=== PATIENT | female | born 1950 | race Hispanic/Latino ===

== ENCOUNTER 2018-02-16 15:03 | Outpatient (CLI) | payer MEDICARE | END 2018-02-16 15:04 | disposition home or self-care (01) | LOC: BICMAMMO 15:03 | PROVIDERS: ATTEND Family Medicine | DX: Z12.31 Encounter for screening mammogram for malignant neoplasm of breast (principal); Z13.820 Encounter for screening for osteoporosis; Z78.0 Asymptomatic menopausal state; M81.0 Age-related osteoporosis without current pathological fracture; R92.1 Mammographic calcification found on diagnostic imaging of breast | CPT/HCPCS: 77063; 77067; 77080 ==

== ENCOUNTER 2018-07-25 07:33 | Inpatient (IN) | payer MEDICARE ==
[2018-07-25] MEDS ORDERED: Ondansetron PF 4 MG/2 ML Vial ONE ×2 (07:36→09:05)
[2018-07-25] MEDS ORDERED: hydrALAZINE 20 MG/ML VIAL ONE (07:40)
[2018-07-25] MEDS ORDERED: niCARdipine 20MG In NaCl 20 MG/200 ML BAG ONE (07:40)
[2018-07-25 07:53] LABS: #Basophils 0.1 thou/uL (0.0-0.2); #Eosinphils 0.3 thou/uL (0.0-0.7); #Lymphocytes 2.9 thou/uL (1.20-3.40); #Neutrophils 6.7 thou/uL (1.40-6.50); %Basophils 0.8 % (0.0-1.0); %Eosinophils 2.4 % (0.0-10.0); %Lymphocytes 26.6 % (21.0-51.0); %Monocytes 9.1 % (0.0-10.0); %Neutrophils 61.1 % (42.0-75.0); Hemoglobin 13.4 g/dL (12.0-16.0); Mean Corpuscular HGB CONC 32.9 g/dL (32.0-36.0); Mean Corpuscular Hemoglobin 29.5 pg (27.0-31.0); Mean Corpuscular Volume 89.5 fL (78.0-98.0); Mean Platelet Volume 7.7 fL (7.4-10.4); Platelet Count 238 thou/uL (130-400); RBC Distribution Width 12.1 % (11.5-14.5); Red Blood Cell (RBC) Count 4.56 mill/uL (4.20-5.40); White Blood Cell (WBC) Count 10.9 thou/uL (4.8-10.8)
[2018-07-25 08:03] LABS: INR-International Normal Ratio 1.1; PTT 30.7 SEC (22.9-36.1); Prothrombin Time 14.2 SEC (12.0-14.7)
[2018-07-25 08:11] LABS: ALT (SGPT) 30 U/L (8-55); AST (SGOT) 27 U/L (5-34); Albumin 3.7 g/dL (3.4-4.8); Alkaline Phosphatase 50 U/L (40-150); Anion Gap 12 mmol/L (10-20); BUN (Urea Nitrogen) 8 mg/dL (9.8-20.1); Bilirubin, Total 0.4 mg/dL (0.2-1.2); Calc. Creatinine Clearance 0 mL/min (70-130); Calcium 9.2 mg/dL (7.8-10.44); Carbon Dioxide 28 mmol/L (23-31); Chloride 104 mmol/L (98-107); Estimated GFR-MDRD Greater than 90; Globulin 3.1 g/dL (2.4-3.5); Glucose 135 mg/dL (80-115); Potassium 3.6 mmol/L (3.5-5.1); Protein, Total 6.8 g/dL (6.0-8.3); Sodium 140 mmol/L (136-145)
--- NOTE | 2018-07-25 08:12 | CT ---
HEAD CT WITHOUT CONTRAST: HISTORY: Left-sided weakness. Placid paralysis. Left-sided facial droop. COMPARISON: None. TECHNIQUE: Noncontrast head CT is performed from the skull base to the skull vertex. FINDINGS: FINDINGS: There is an acute intraparenchymal hemorrhage centered in the right deep hernandez matter structures and r ight thalamus. This hemorrhage measures 2.0 x 1.7 cm. There is a small amount of associated periphe ral edema. There is decompression of hemorrhage into the right ventricular system. No evidence of h ydrocephalus. No midline shift. Basilar cisterns are patent. Cortical hernandez-white matter differentiation is preserved. Adequate aeration of the mastoid air cells. Right sphenoid sinus disease. Calvarium is intact. IMPRESSION: 1. Intraparenchymal hemorrhage. 2. Results of the study discussed with Dr. Epperson 07/25/2018 at 7:49 a.m. CODE PIPER POS: [facility]
[2018-07-25 08:16] LABS: CKMB 1.8 ng/mL (0-6.6); Troponin I Less than 0.010 ng/mL (< 0.028)
[2018-07-25] MEDS ORDERED: Ondansetron PF 4 MG/2 ML Vial IVP PRN (08:23)
[2018-07-25] MEDS ORDERED: Acetaminophen 1,000 MG in Premix Bag 1 BAG IVPB PRN (08:29)
[2018-07-25] MEDS ORDERED: Morphine 2 MG/ML SYRINGE SLOW IVP PRN (08:30)
[2018-07-25 09:00] LABS: Bilirubin Negative (Negative); Blood, Urine Negative (Negative); Clarity TURBID (Clear); Glucose, Urine (Dipstick) Negative (Negative); Leukocyte Negative (Negative); Nitrite Negative (Negative); Protein, Urine (Dipstick) Negative (Neg-Trace); Specific Gravity, Urine 1.011 (1.002-1.036); Urobilinogen 0.2 mg/dL (0.2-1.0)
[2018-07-25] MEDS ORDERED: Famotidine/PF 20 mg/2ml Vial ONE (13:04)
[2018-07-25 13:45] LABS: Hemoglobin A1c 6.1 % (4.0-6.0)
--- NOTE | 2018-07-25 15:55 | PDOC.EVN ---
Attending Addendum - Attending Addendum Date/Time: 07/25/18 154 I personally evaluated the patient and discussed the management with Dr. Thompson. I agree with the History, Examination, Assessment and Plan documented in his consultation note with any addition or exceptions noted below. Patient with overall unknown medical history here after sudden change in neurological function. She was ambulating this morning when she fell, and immediately had L sided weakess, facial droop, and slurred speech. On arrival to the ER, BP greatly elevated to >[address] brain obtained at that time showed acute ICH without significant midline shift. She was started on IV Cardene and admitted to NSGY team for further treatment of this hemorrhagic stroke and intraparenchymal hemorrhage. Admitted to CCU, overall mgmt per primary team NSGY and Pulm. WIll continue to assist with BP control. Will initiate and titrate oral anti-HTN drugs when medically cleared by NSGY. Consult stroke team and screen for risk factors and treat as appropriate. Will follow along with the primary team and provide input wherever necessary.
[2018-07-25] MEDS: Sodium Chloride 0.9% 1,000 ML IV SCH ×2 (19:35)
[2018-07-25] MEDS: Famotidine/PF 20 mg/2ml Vial SLOW IVP SCH ×2 (19:36→20:31)
--- NOTE | 2018-07-25 21:22 | CON ---
DATE OF CONSULTATION: 07/25/2018 CHIEF COMPLAINT: Left-sided hemiparalysis, left-sided facial droop, and recent hemorrhagic stroke. HISTORY OF PRESENT ILLNESS AND BRIEF HOSPITAL COURSE: This is a 68-year-old female with no past medical history, came to ED after was found down by a neighbor around 0710 hours this morning, was not acting right. She had left-sided facial droop and left-sided weakness. When EMS came and found her blood pressures were in the 210s, brought to the ER, it was around 190. When I went to evaluate the patient, the patient was very sleepy, was not easily arousable even to sternal rub. Speaking with family, she does have a history of excessive snoring at night, feeling very tired throughout the day, reporting falling asleep quite easily during the day. The patient reports being very tired per the family and is resting at this time. She is still experiencing symptoms of left-sided numbness and not being able to move her left arm or left leg. PAST MEDICAL HISTORY: None. PAST SURGICAL HISTORY: Had 1 prior . ALLERGIES: NO KNOWN DRUG ALLERGIES. FAMILY HISTORY: She had a brother who had a stroke. SOCIAL HISTORY: She is currently smoking 3 cigarettes a day, had cut back from half a pack per day smoking 3-1/2 years ago, had smoked half a pack per day for over 30 years. Alcohol; drinks occasionally more socially drinks 5 beers sometimes at a time. No illicit drug use. REVIEW OF SYSTEMS: Unable to obtain review of systems as the patient was very drowsy and unarousable at this time. We will try and reassess later. PHYSICAL EXAMINATION: CONSTITUTIONAL: The patient again is very sleepy, non-arousable even to sternal rub. HEENT: The patient's head exam is normal. Atraumatic and normocephalic. Eyes; pupils are equally round and reactive to light. No nystagmus. ENT; moist mucous membranes noted. NECK: Trachea is midline. No lymphadenopathy noted. CARDIOVASCULAR: Regular rate and rhythm. No gallops or murmurs. RESPIRATORY: Lungs are clear to auscultation bilaterally. No wheezes or crackles. ABDOMEN: Nontender. Bowel sounds normal. No distention. No masses at this time. NEUROLOGIC: Unable to fully assess full neuro exam. Again, this patient was very drowsy and sleepy at this time. She would open her eyes, but would follow right back to sleep. SKIN: No swelling noted. Skin is warm and dry. LABORATORY DATA: White blood cell count was 10.9, hemoglobin 13.4, hematocrit 40.8, and platelet count 238. PT 14.2, INR 1.1. Chemistries; sodium 140, potassium 3.6, chloride 104, carbon dioxide 28, anion gap 12, BUN 8, creatinine 0.57, glucose 135, calcium 9.2. Total bilirubin 0.4, AST 27, ALT 30, alkaline phosphatase 50, CK- MB 1.8, troponin I was less than 0.010. Albumin 3.7. Total protein 6.8. UA was insignificant. IMAGING: Brain CT showed intraparenchymal hemorrhage. There is an acute intraparenchymal hemorrhage centered in the right deep greene matter structures and right thalamus. Hemorrhage measures 2.0 to 1.7 cm at this time. ASSESSMENT: 1. Hemorrhagic stroke. 2. Suspect obstructive sleep apnea. 3. Elevated blood glucose. 4. Elevated blood pressures. 5. Morbid obesity. 6. Tobacco abuse. PLAN: 1. Hemorrhagic stroke- Neurosurgery is the primary team. They are managing hemorrhagic stroke at this time. We will follow their orders and recommendations. As far as their standpoint, there is nothing can be done for the hemorrhage at this time. We will continue to follow. 2. NARAYAN- We will order CPAP for the patient tonight as the patient is very sleepy and unarousable during visit, talking with family it seems that she has a history of sleep apnea that has never been assessed in the past. 3. Elevated Blood Glucose- The patient's blood sugar iselevated at 135, not sure it was backing enough, but we will check her hemoglobin A1c and assess for another. 4. Elevated blood pressure. Her blood pressure was elevated at the time the patient was arrived, unsure if this is due to hemorrhagic stroke. She was placed on Cardene drip per Neurosurgery's recommendations. Continue to follow their parameters. We will want to trend blood pressures once she is off the Cardene drip and treat appropriately. 5. Tobacco abuse. We will consult the patient on cessation of cigarette use when she is more alert and oriented. Job ID: [id number] [facility]
--- NOTE | 2018-07-25 22:26 | CON ---
DATE OF CONSULTATION: SUBJECTIVE: Radha Schrader is a 68-year-old morbidly obese female, who is in the ICU for a right-sided intracerebral hemorrhage, probably hypertensive. She was in the ER some time back for a dislocated shoulder on 04/14/2017. She takes no regular medication as per the daughter, only medicine is vitamins. PAST MEDICAL HISTORY: Unknown diabetes, hypertension. PAST SURGICAL HISTORY: Apparently none, some shoulder issues, multiple dislocations, which were addressed by Orthopedic Surgery. ALLERGIES: NONE. SOCIAL HISTORY: Otherwise unremarkable. Tobacco none. Alcohol minimal. She did smoke at one time, half pack a day, but quit smoking 10 years ago. No previous history of TB, pneumonia, or asthma. Previous surgeries, c section_. PHYSICAL EXAMINATION: GENERAL: Awake, alert, responsive. She has right-sided weakness, slurred speech. VITAL SIGNS: Saturations 95%, blood pressure 150/80, respirations 18, pulse 80. CHEST: Revealed no wheezing or crackles. CARDIAC: Normal S1 and S2. No gallop. ABDOMEN: Soft. EXTREMITIES: No edema. LABORATORY DATA: White count 10,000, H and H unremarkable. Lytes are normal. IMPRESSION: 1. Hypertensive right intracerebral hemorrhage. 2. Morbid obesity, probably sleep apnea. PLAN: Neurosurgery has seen the patient. Blood pressure medicine p.r.n. Otherwise, agree with PT, supportive care, and serial exam. This is a consultation note, 70 minutes, of which 50% on direct patient care. Job ID: [id number] [facility]TDD
[2018-07-26] MEDS: Sodium Chloride 0.9% 1,000 ML IV SCH ×2 (02:06→21:20)
[2018-07-26] MEDS: hydrALAZINE 20 MG/ML VIAL SLOW IVP PRN (04:12)
--- NOTE | 2018-07-26 07:21 | PDOC.FM ---
- Subjective Subjective: Pt alert and oriented this am. Speech still slurred at this time. Pt reports having hard time swallowing. Denies any chest pain or SOB at this time. Denies any acute events overnight. Pt denies any n/v/d/c. Pt unable to move left arm or left leg at this time. - Objective MAR Reviewed: Yes Vital Signs & Weight: Vital Signs (12 hours) Temp Pulse Resp BP Pulse Ox 07/26/18 04:12 81 172/83 H 07/26/18 03:00 99.0 F 07/25/18 23:00 98.2 F 07/25/18 21:00 81 15 100 07/25/18 20:00 98 Weight Weight 82.7 kg Most Recent Monitor Data Heart Rate from ECG 93 NIBP 147/102 NIBP BP-Mean 117 Respiration from ECG 24 SpO2 97 I&O: 07/25/18 07/26/18 07/27/18 06:59 06:59 06:59 Intake Total 781 Output Total 1300 Balance -519 Result Diagrams: 07/25/18 07:45 07/25/18 07:45 Radiology Reviewed by me: Yes (Brain CT today pending. ) Radiology: 07/25/[address] Brain [address]- R intraparenchymal hemorrhage in deep hernandez matter and by R. thalamus. <Satnam Thompson - Last Filed: 07/26/18 07:19> - Objective Vital Signs & Weight: Vital Signs (12 hours) Temp Pulse Resp BP Pulse Ox 07/26/18 08:00 99.3 F 07/26/18 07:51 88 23 H 98 07/26/18 04:12 81 172/83 H 07/26/18 03:00 99.0 F 07/25/18 23:00 98.2 F Weight Weight 82.7 kg Most Recent Monitor Data Heart Rate from ECG 80 NIBP 162/74 NIBP BP-Mean 103 Respiration from ECG 17 SpO2 97 I&O: 07/25/18 07/26/18 07/27/18 06:59 06:59 06:59 Intake Total 781 Output Total 1300 175 Balance -519 -175 Result Diagrams: 07/25/18 07:45 07/25/18 07:45 <Sarai Carpenter - Last Filed: 07/26/18 10:52> Phys Exam - Physical Examination Constitutional: NAD HEENT: PERRLA, moist MMs Neck: no nodes, no JVD, supple Respiratory: no wheezing, no rales, no rhonchi, clear to auscultation bilateral Cardiovascular: RRR, no significant murmur, no rub Gastrointestinal: soft, non-tender, no distention, positive bowel sounds Musculoskeletal: no edema, pulses present Pt still has slurred speech. A little easier to understand compared to Unable to move left arm/leg. Decreased sensation. Left facial droop present Lymphatic: no nodes Psychiatric: normal affect, A&O x 3 Skin: no rash, normal turgor, cap refill <2 seconds <Satnam Thompson - Last Filed: 07/26/18 07:19> Dx/Plan (1) Hemorrhagic stroke Code(s): I61.9 - NONTRAUMATIC INTRACEREBRAL HEMORRHAGE, UNSPECIFIED Status: Acute (2) Pre-diabetes Code(s): R73.03 - PREDIABETES Status: Acute (3) Tobacco abuse counseling Code(s): Z71.6 - TOBACCO ABUSE COUNSELING Status: Acute - Plan Plan: Hemorrhagic Stroke -Repeat Brain Ct pending -Neurosurgery team managing at this time. Non operative. -PT/OT/Rehab consulted- will follow recs -Speech consulted- having difficulties swallowing. Follow recs -statin started. Elevated BP -IV PRN labetolol and hydralazine ordered for SBP >180. Neurosurgery also managing BP per protocol. -Continue to monitor. Likely underlying dx of hypertension. Once pt swallowing improved will want to start oral medication Prediabetes -A1c 6.1. Closer to discharge will counseling center director pt and likely start on metformin. <Satnam Thompson - Last Filed: 07/26/18 07:19> Attending Addendum - Attending Addendum Date/Time: 07/26/18 1050 I personally evaluated the patient and discussed the management with Dr. Thompson. I agree with the History, Examination, Assessment and Plan documented above with any addition or exceptions noted below. The patient has failed swallow eval. Therapy will continue to re-evaluate. The patient has prn's for bp control. Will begin orals when safe to swallow. <Sarai Carpenter - Last Filed: 07/26/18 10:52>
[2018-07-26] MEDS: Famotidine/PF 20 mg/2ml Vial SLOW IVP SCH ×2 (08:52→21:19)
--- NOTE | 2018-07-26 08:54 | CT ---
PRELIMINARY REPORT/[facility]/EMERGENTY AFTER-HOURS PROCEDURE CT Head Without Contrast EXAM DATE/TIME: 07/26/2018 3:32 AM CLINICAL HISTORY: 68 years old, female; Condition or disease; Other: Hemorrhage; Patient HX: F/u intracerebral hemorrha [facility] stroke TECHNIQUE: Axial computed tomography images of the head/brain without contrast. COMPARISON: CT Brain WO Con 07/25/2018 7:42 AM FINDINGS: Brain: Scattered areas of hypoattenuation, likely chronic small vessel ischemic change, demyelination , or gliosis. Ventricles: 2.1 x 2.0 cm hemorrhage within the right basal ganglia and thalamus, with extension of he morrhage into the right lateral ventricle, not significantly changed from comparison study. Bones/joints: Normal. Sinuses: Minimal ethmoid and right maxillary sinus disease. Mastoid air cells: Normal as visualized. Soft tissues: Normal. Vasculature: Atherosclerotic vascular calcifications. IMPRESSION: 2.1 x 2.0 cm hemorrhage within the right basal ganglia and thalamus, with extension of hemorrhage int o the right lateral ventricle, not significantly changed from comparison study. Thank you for allowing us to participate in the care of your patient. Dictated and Authenticated by: Dinesh Sorenson MD 07/26/2018 3:55 AM Central Time ([place] & [place]) FINAL REPORT EMERGENCY AFTER HOURS CT BRAIN: Date: 07/26/18 FINDINGS/IMPRESSION: I agree with the above provided preliminary interpretation from [facility]. Redemonstration of acute parenchymal hemorrhage centered at the right thalamus with extension into th e right basal ganglia and burdick radiata. Expected evolution with developing surrounding vasogenic ed gemma. Degree of ventricular effacement and slight leftward midline shift persists. Continued follow-up is warranted. POS: [facility]
--- NOTE | 2018-07-26 11:08 | PRG ---
DATE OF SERVICE: 07/26/2018 SUBJECTIVE: This morning, she says she is having some difficulty breathing. OBJECTIVE: VITAL SIGNS: Blood pressure is elevated at 162/74, temperature is 99.3, pulse is 88, and respirations are 18. CHEST: Decreased breath sounds. No wheezing. CARDIAC: Normal S1 and S2. No gallops or murmurs. IMAGING STUDIES: CT brain shows stable right basilar thalamus infarct. IMPRESSION: 1. Morbid obesity. 2. Hypertension. PLAN: Norvasc was initiated by [facility]. PT will follow. Job ID: [id number]
--- NOTE | 2018-07-26 11:43 | RAD ---
CHEST ONE VIEW: History: Dyspnea. CVA. FINDINGS: No comparison. Cardiac silhouette is magnified by projection. Pulmonary vasculature is unremarkable. Mediastinum is midline with aortic calcification. No confluent airspace consolidation or evidence of pneumothorax. T hree metallic densities project over the right lower chest. satellite project site monitor leads overlie the chest. IMPRESSION: 1. Atherosclerosis. 2. No active cardiopulmonary abnormalities are otherwise demonstrated. POS: [place]
--- NOTE | 2018-07-26 13:09 | HP ---
HISTORY OF PRESENT ILLNESS: The patient is a 68-year-old obese female , who was otherwise reportedly healthy, who was found down by her this morning. He reports that they worked at the [employer] and this morning around 0700 hours, he heard a thud and found the patient lying on the ground near the front door. At that time, he noticed she had left-sided weakness and slurred speech, so EMS was contacted who brought the patient to [facility] for further evaluation. CT head was done on arrival, which showed a right-sided intracranial hemorrhage located around the right thalamus. There is intraventricular extension. The patient was also noted per EMS to have elevated systolic blood pressure greater than 200 on their initial arrival. Her PT and INR are normal as well as her platelet count. The patient was started on a Cardene drip shortly after arrival to the emergency department and her most recent blood pressure is 126/79. I examined patient in ER room 5 and she is A and O x3. She has dysarthria and obvious left-sided facial droop, left-sided dense hemiplegia, and left-sided neglect. PAST MEDICAL HISTORY: The patient and family reports she is otherwise healthy and denies any prior medical problems. PAST SURGICAL HISTORY: section. SOCIAL HISTORY: The patient smokes approximately one half pack per day. She drinks approximately 5 alcoholic drinks per day. She does not use any drugs. She lives at home with her family. She is . ALLERGIES: SHE HAS NO KNOWN DRUG ALLERGIES. CURRENT MEDICATIONS LIST: 1. Fish oil. 2. Zinc. REVIEW OF SYSTEMS: Unobtainable at this time secondary to current condition. PHYSICAL EXAMINATION: VITAL SIGNS: BP is 126/79, pulse is 99, respiratory rate is 20, temperature is 98.5, and the patient is 99% on room air. CONSTITUTIONAL: Slightly drowsy, but awakens easily to voice. She is oriented x3. HEENT: Head; she has obviously left-sided facial droop. No evidence of trauma. Eyes; PERRLA. ENT; mucosa is pink and moist. The patient has moderate dysarthria and some difficulty swallowing. NECK: Nontender to palpation. CARDIAC: Regular rate and rhythm. PULMONARY: Symmetric chest expansion. No evidence of dyspnea. NEUROLOGIC: She is slightly drowsy, but she awakens easily to voice. She is oriented x3. She has an obvious left facial droop, dysarthria, and a dense left hemiplegia with left-sided neglect. She has 5/5 strength on the right. ASSESSMENT AND PLAN: This is an unfortunate 68-year-old female, who was found to have acute intracranial hemorrhage in the right basal ganglia region following a hypertensive episode. Currently, her blood pressure is being controlled on a Cardene drip and we will continue this. The patient will be admitted to the ICU where she can be monitored closely with q. 1 neuro checks and strict blood pressure control. She will need a dysphagia screen and will be kept n.p.o. until that time. We will plan to repeat her a.m. head CT. I have also consulted critical care as well as hospitalist for assistance in medical management. Dr. Peres has been notified and is in agreement with this plan. Job ID: [id number] MTDD
[2018-07-26 13:12] LABS: Actual Bicarbonate (HCO3a) 28.1 mEq/L (22-28); Base Excess (BEa) 3.1 mEq/L (-2.0 to +3.0); CO2 Tension 44.6 mmHg (35.0-45.0); Calcium, Ionized 1.11 mmol/L (1.12-1.30); Carboxyhemoglobin (COHb) 1.5 gm% (0.0-3.0); Hemoglobin (Hb) 13.3 g/dL (12.0-16.0); O2 Tension (PaO2) 89.5 mmHg (> 80.0); Potassium - ABG Lab 3.58 mmol/L (3.70-5.30); pH, Arterial 7.42 (7.35-7.45)
[2018-07-26 13:14] LABS: Puncture Site RRA
--- NOTE | 2018-07-26 14:28 | CT ---
CT BRAIN WITHOUT CONTRAST: Comparison: 07-26-18 History: Change in mental status. Intracranial hemorrhage. Technique: Multiple contiguous axial images were obtained in a CT of the brain without contrast. FINDINGS: There is a stable areas of hemorrhage involving the right basal ganglia. This measures approximately 2.8 cm in greatest dimension. A small amount of surrounding edema is seen. A small amount of blood is seen in the right lateral ventricle, unchanged. No hydrocephalus is present. No significant midline shift or downward herniation is seen. The calvarium and overlying soft tissues are unremarkable. The visualized paranasal sinuses and masto id air cells are well aerated. IMPRESSION: Stable right basilar ganglia hemorrhage extending into the right lateral ventricle. POS: [facility]
--- NOTE | 2018-07-26 15:02 | PRG ---
DATE OF SERVICE: 07/26/2018 SUBJECTIVE: The patient is seen and examined, agree with Lili Villarreal's evaluation on 07/25/2018. The patient is a 68-year-old woman who has suffered a spontaneous hypertensive hemorrhage in the right basal ganglia. She is alert with slurred speech, but appropriately interactive and following commands. She has a dense left hemiparesis. CT scan this morning is stable. She has a right basal ganglia hemorrhage, probably originating in the putamen or thalamus with extension into the right lateral ventricle without hydrocephalus. IMPRESSION AND PLAN: Hypertensive hemorrhage. We will focus on blood pressure control, swallowing evaluation, and physical therapy. She is not going to require any surgical intervention. We will keep in ICU today. We will plan to transition to the medical team when appropriate on transfer to the Stroke Unit. Discussed with the patient's . Job ID: [id number]
[2018-07-26] MEDS: Labetalol HCl 100 MG/20 ML VIAL SLOW IVP PRN (19:19)
--- NOTE | 2018-07-27 07:12 | PDOC.FM ---
- Subjective Subjective: Pt still reports concern with swallowing and feeling like she is choking. She denies any chest pain or SOB. Denies any new headaches or vision changes. Pt unable to move left side. Speech is more coherent today. Pt is A&Ox3. - Objective MAR Reviewed: Yes Vital Signs & Weight: Vital Signs (12 hours) Temp Pulse Resp BP Pulse Ox 07/27/18 04:00 98.0 F 07/27/18 00:00 98.1 F 07/26/18 21:00 84 27 H 98 07/26/18 20:00 98.1 F 94 L 07/26/18 19:19 88 175/83 H Weight Admit Weight 82.554 kg Weight 82.5 kg Most Recent Monitor Data Heart Rate from ECG 78 NIBP 154/73 NIBP BP-Mean 100 Respiration from ECG 22 SpO2 96 I&O: 07/26/18 07/27/18 07/28/18 06:59 06:59 06:59 Intake Total 781 1849 Output Total 1300 1230 Balance -519 619 Result Diagrams: 07/25/18 07:45 07/25/18 07:45 Radiology Reviewed by me: Yes Radiology: 07/[address]- Stable R. basal ganglia hemorrhage extending into lateral ventricle. <Satnam Thompson - Last Filed: 07/27/18 07:10> - Objective Vital Signs & Weight: Vital Signs (12 hours) Temp Pulse Pulse Pulse Pulse BP BP 07/27/18 12:00 98.8 F 07/27/18 09:18 75 166/76 H 07/27/18 08:50 81 79 166/76 H 07/27/18 08:10 81 77 148/74 H 07/27/18 08:00 98.9 F 07/27/18 07:54 75 187/84 H 07/27/18 07:00 98.9 F 07/27/18 04:00 98.0 F BP BP Pulse Ox Pulse Ox Pulse Ox Pulse Ox 07/27/18 12:00 07/27/18 09:18 07/27/18 08:50 159/79 H 97 97 07/27/18 08:10 159/79 H 96 96 07/27/18 08:00 96 07/27/18 07:54 07/27/18 07:00 07/27/18 04:00 Weight Admit Weight 82.554 kg Weight 82.5 kg Most Recent Monitor Data Heart Rate from ECG 76 NIBP 150/71 NIBP BP-Mean 97 Respiration from ECG 20 SpO2 93 I&O: 07/26/18 07/27/18 07/28/18 06:59 06:59 06:59 Intake Total 781 1849 Output Total 7450 1230 475 Balance -519 619 -475 Result Diagrams: 07/25/18 07:45 07/27/18 07:24 <Sarai Carpenter - Last Filed: 07/27/18 14:56> Phys Exam - Physical Examination Constitutional: NAD HEENT: PERRLA, moist MMs Neck: no nodes, supple Respiratory: no wheezing, no rales, no rhonchi, clear to auscultation bilateral Cardiovascular: RRR, no significant murmur, no rub Gastrointestinal: soft, non-tender, no distention, positive bowel sounds Musculoskeletal: no edema, pulses present Unable to move left side. Left facial droop present. decreased sensation on left side. speech improving Psychiatric: normal affect, A&O x 3 Deviation from normal: Pt answers questions appropriatley Skin: no rash, cap refill <2 seconds <Satnam Thompson - Last Filed: 07/27/18 07:10> Dx/Plan (1) Hemorrhagic stroke Code(s): I61.9 - NONTRAUMATIC INTRACEREBRAL HEMORRHAGE, UNSPECIFIED Status: Acute (2) Pre-diabetes Code(s): R73.03 - PREDIABETES Status: Acute (3) Tobacco abuse counseling Code(s): Z71.6 - TOBACCO ABUSE COUNSELING Status: Acute (4) Elevated blood pressure reading without diagnosis of hypertension Code(s): R03.0 - ELEVATED BLOOD-PRESSURE READING, W/O DIAGNOSIS OF HTN Status : Acute - Plan Plan: Hemorrhagic Stroke -Repeat Brain Ct shows hemorrhage into R. basal ganglia and lateral ventricle. -Neurosurgery team managing at this time. Non operative. -PT/OT/Rehab consulted- will follow recs -Speech consulted- having difficulties swallowing. Follow recs. Did not pass swallow yesterday. will continue to follow speech assessment. -statin started. Elevated BP -IV PRN labetolol and hydralazine ordered for SBP >180. Neurosurgery also managing BP per protocol. -Continue to monitor. Likely underlying dx of hypertension. Once pt swallowing improved will want to start oral medication. Unable to swallow still. Per nurse BP being controlled with IV meds at this time. Prediabetes -A1c 6.1. Closer to discharge will behavioral health counselor pt and likely start on metformin. <Satnam Thompson - Last Filed: 07/27/18 07:10> Attending Addendum - Attending Addendum Date/Time: 07/27/18 4906 I personally evaluated the patient and discussed the management with Dr. Thompson. I agree with the History, Examination, Assessment and Plan documented above with any addition or exceptions noted below. Pt was able to swallow her amlodipine this am. Waiting on speech therapy to recommend diet if she passes swallow. Transfer out of ICU. Will place rehab screen. <Sarai Carpenter - Last Filed: 07/27/18 14:56>
[2018-07-27] MEDS: Labetalol HCl 100 MG/20 ML VIAL SLOW IVP PRN (07:54)
[2018-07-27 08:02] LABS: Anion Gap 9 mmol/L (10-20); BUN (Urea Nitrogen) 10 mg/dL (9.8-20.1); Calc. Creatinine Clearance 127 mL/min (70-130); Calcium 8.8 mg/dL (7.8-10.44); Carbon Dioxide 28 mmol/L (23-31); Chloride 105 mmol/L (98-107); Estimated GFR-MDRD Greater than 90; Glucose 91 mg/dL (80-115); Potassium 3.8 mmol/L (3.5-5.1); Sodium 138 mmol/L (136-145)
[2018-07-27] MEDS: Famotidine/PF 20 mg/2ml Vial SLOW IVP SCH (09:18)
[2018-07-27] MEDS: Amlodipine 5 MG TAB PO SCH (09:18)
--- NOTE | 2018-07-27 10:10 | PRG ---
DATE OF SERVICE: 07/27/2018 SUBJECTIVE: This morning, much more awake, alert, and responsive. OBJECTIVE: VITAL SIGNS: Blood pressure is better controlled 150/80, pulse 75, and respiratory rate 18. CHEST: No wheezes or crackles. CARDIAC: Normal S1 and S2. No gallops or murmurs. NEUROLOGIC: She is not able to move her left side. LABORATORY DATA: Lytes are normal. IMPRESSION: 1. Intracerebral hemorrhage, right temporal-parietal, with left-sided weakness. 2. Hypertension. 3. Probable sleep apnea. She can be transferred out of the ICU. Continue supportive care, PT, eventually placement. Job ID: [id number]
--- NOTE | 2018-07-27 13:34 | CON ---
DATE OF CONSULTATION: HISTORY: Ms. Schrader is alert, upright and cooperative. Her exam is otherwise unchanged. A swallow eval will be repeated today, and if she fails this, she will likely need feeding tube. She can be transferred to the floor when acceptable with the Family Medicine Service depending on her blood pressure. No specific additional neurosurgical recommendations at this time and I will arrange for a followup head CT in 4 weeks. Job ID: [id number]
--- NOTE | 2018-07-27 16:12 | RAD ---
MODIFIED BARIUM SWALLOW: DATE: 07/27/2018. HISTORY: Dysphagia following nontraumatic intracerebral basal ganglia hemorrhage. Dysphagia, oral phase, feed ing difficulties. FINDINGS: This examination was performed in conjunction with speech pathology. The patient was administered th in and thick liquid consistency barium. The patient demonstrates delayed formation of the bolus into the posterior pharynx with pooling in the vallecula and piriform sinuses, especially with thin liqui d barium prior to initiation of swallowing mechanism. The patient demonstrates penetration with thin liquid barium with an episode of rachel aspiration with nectar consistency barium. IMPRESSION: Episode of aspiration as described above. POS: [facility]
[2018-07-27] MEDS: Sodium Chloride 0.9% 1,000 ML IV SCH (18:00)
[2018-07-27 19:31] LABS: Actual Bicarbonate (HCO3a) 29.9 mEq/L (22-28); Base Excess (BEa) 4.1 mEq/L (-2.0 to +3.0); CO2 Tension 49.7 mmHg (35.0-45.0); Calcium, Ionized 1.14 mmol/L (1.12-1.30); Carboxyhemoglobin (COHb) 0.5 gm% (0.0-3.0); Hemoglobin (Hb) 13.1 g/dL (12.0-16.0); O2 Tension (PaO2) 94.2 mmHg (> 80.0); Potassium - ABG Lab 3.67 mmol/L (3.70-5.30)
[2018-07-27 19:32] LABS: Puncture Site RRAD
[2018-07-27 19:43] LABS: INR-International Normal Ratio 1.1; PTT 31.9 SEC (22.9-36.1); Prothrombin Time 14.3 SEC (12.0-14.7)
[2018-07-27 20:00] LABS: CKMB 2.6 ng/mL (0-6.6); Troponin I Less than 0.010 ng/mL (< 0.028)
--- NOTE | 2018-07-27 20:57 | CT ---
CT OF BRAIN PERFORMED WITHOUT CONTRAST ENHANCEMENT: Date: 07/27/18 HISTORY: Hemorrhagic stroke with mental status change. COMPARISON: Earlier examination done yesterday. FINDINGS: The ventricular and cisternal system is essentially unchanged. The right basal ganglia hemorrhage is stable in size. The intraventricular blood also appears stable. I do not see any definite change in t he midline shift. No new hemorrhage is seen. IMPRESSION: Stable overall exam. The periventricular hemorrhage, as well as intraventricular blood and midline sh ift all appear stable. POS: [facility]
--- NOTE | 2018-07-27 21:13 | PDOC.EVN ---
Event Note - Event Note Event Note: Per Responded to [place] on floor after pt recently transferred. Pt Alert to voice, but not oriented to person or place. Is following commands, but closes eyes immediately after. Per nurse, pt normal mental status 1hr ago. Spoke with neurosurgery and ordered repeat CT head. Also order labs and stat ABG revealing hypercapnia. Start BIPAP and repeat ABG. Has not taken any medications causing AMS recently. Dr Kleni notified and family updated. Checked back with pt upon arrival in ICU and she is alert and oriented x3 and conversational on nasal cannula just as in the room. <Max Baires - Last Filed: 07/27/18 21:08> Attending Addendum - Attending Addendum Date/Time: 07/27/18 2223 I personally evaluated the patient and discussed the management with Dr. Baires and Dr. Pastrana shortly after transfer to CCU. I agree with the History, Examination, Assessment and Plan documented above with any addition or exceptions noted below. <Fazal Klein - Last Filed: 07/27/18 22:23>
[2018-07-27] MEDS: Famotidine 20 MG TAB PO SCH (21:43)
[2018-07-27 23:00] LABS: Actual Bicarbonate (HCO3a) 29.1 mEq/L (22-28); Base Excess (BEa) 3.3 mEq/L (-2.0 to +3.0); CO2 Tension 49.2 mmHg (35.0-45.0); Calcium, Ionized 1.14 mmol/L (1.12-1.30); Carboxyhemoglobin (COHb) 1.1 gm% (0.0-3.0); Hemoglobin (Hb) 13.1 g/dL (12.0-16.0); O2 Tension (PaO2) 78.3 mmHg (> 80.0); Potassium - ABG Lab 3.55 mmol/L (3.70-5.30); pH, Arterial 7.39 (7.35-7.45)
[2018-07-27 23:03] LABS: Puncture Site RBRACH
--- NOTE | 2018-07-28 01:33 | CON ---
DATE OF CONSULTATION: 07/27/2018 TYPE OF CONSULTATION: Neurology. CONSULTING PHYSICIAN: Hospitalist service. IMPRESSION: 1. Basal ganglia hemorrhage resulting in secondary left hemiparesis and dysphagia. 2. Hypertension. 3. Diabetes. 4. Obesity. 5. Tobacco use. PLAN: 1. Maintain blood pressures below 160/90. 2. Re-assess swallowing and determine whether PEG tube is going to be necessary. 3. Rehab transfer. HOSPITAL COURSE: Ms. Schrader is a 68-year-old female, who came in with acute left hemiparesis on Tuesday. She was found to have a fairly significant basal ganglia hemorrhage with secondary intraventricular blood. She was quite obtunded initially, but has regained alertness over the last 24 hours. She has not seen any improvement in her left-sided weakness as far as she can tell. She failed her swallow study. She denied having a history of hypertension prior to admission. PAST MEDICAL HISTORY: Otherwise negative. ALLERGIES: NONE. MEDICATIONS: List was reviewed. SOCIAL HISTORY: Positive for tobacco. FAMILY HISTORY: Noncontributory. REVIEW OF SYSTEMS: No complaint of nausea, vomiting, chest pain, or shortness of breath. PHYSICAL EXAMINATION: GENERAL: She is an obese, middle-aged woman, in no acute distress. VITAL SIGNS: Blood pressure 174/135, pulse 90, respirations 16. HEENT: Pupils are equal and reactive. Conjunctivae are clear. Oropharynx is clear. NECK: No lymphadenopathy. EXTREMITIES: No cyanosis. NEUROLOGIC: She was alert and cooperative. Her speech was mildly dysarthric. She was otherwise fluent. She followed commands appropriately. Cranial nerve exam showed a subtle left facial droop. Motor exam showed a dense left hemiparesis with essentially no movement. Sensation was intact on the left, but diminished. Gait was not testable. No abnormal movements were seen. Plantar responses were equivocal. SUMMARY: A 68-year-old woman with acute basal ganglia hemorrhage. Fortunately, she is showing a recovery in her level of consciousness. Her blood pressure remains elevated, and it should be brought under better control, not much else I have to offer. Job ID: [id number]
[2018-07-28] MEDS: Sodium Chloride 0.9% 1,000 ML IV SCH ×2 (05:05→19:45)
[2018-07-28 08:22] LABS: #Basophils 0.1 thou/uL (0.0-0.2); #Eosinphils 0.2 thou/uL (0.0-0.7); #Lymphocytes 1.8 thou/uL (1.20-3.40); %Basophils 0.5 % (0.0-1.0); %Eosinophils 2.1 % (0.0-10.0); %Lymphocytes 16.1 % (21.0-51.0); %Neutrophils 72.2 % (42.0-75.0); Hemoglobin 13.2 g/dL (12.0-16.0); Mean Corpuscular HGB CONC 33.7 g/dL (32.0-36.0); Platelet Count 237 thou/uL (130-400); RBC Distribution Width 12.1 % (11.5-14.5); Red Blood Cell (RBC) Count 4.41 mill/uL (4.20-5.40)
--- NOTE | 2018-07-28 08:32 | PDOC.FM ---
- Subjective Subjective: Pt doing well this morning. Pt reports being uncomfortable in bed. Would like to sit up in chair. Pt reports feeling some congestion in her chest. Reports having some difficulty coughing. Reports swallowing improving. Pt unable to move left side at all at this time. Denies any chest pain, SOB, headaches. Pt had event last night where she was somlonent and concerned about SOB. Pt reports she was just tired and sleepy. Denied any acute event. - Objective Vital Signs & Weight: Vital Signs (12 hours) Temp Pulse Resp BP Pulse Ox 07/28/18 07:56 95 07/28/18 07:35 99.0 F 71 25 H 153/72 H 94 L 07/28/18 03:46 98.6 F 70 20 116/51 L 95 07/27/18 23:39 98.4 F 69 18 154/84 H 98 07/27/18 22:25 98 07/27/18 22:21 98.1 F 65 18 142/80 H 98 Weight Admit Weight 82.554 kg Weight 86.183 kg Most Recent Monitor Data Heart Rate from ECG 81 NIBP 174/135 NIBP BP-Mean 148 Respiration from ECG 15 SpO2 94 I&O: 07/27/18 07/28/18 07/29/18 06:59 06:59 06:59 Intake Total 1849 530 Output Total 1230 1275 Balance 619 -335 Result Diagrams: 07/28/18 07:41 07/27/18 07:24 Radiology Reviewed by me: Yes Radiology: 07/[address]- Stable from previous exams. <Satnam Thompson - Last Filed: 07/28/18 08:30> - Objective Vital Signs & Weight: Vital Signs (12 hours) Temp Pulse Resp BP Pulse Ox 07/28/18 11:34 98.2 F 77 18 157/76 H 95 07/28/18 09:37 71 07/28/18 07:56 95 07/28/18 07:35 99.0 F 71 25 H 153/72 H 94 L 07/28/18 03:46 98.6 F 70 20 116/51 L 95 Weight Admit Weight 83 kg Weight 86.183 kg Most Recent Monitor Data Heart Rate from ECG 81 NIBP 174/135 NIBP BP-Mean 148 Respiration from ECG 15 SpO2 94 I&O: 1207/28/18 07/29/18 06:59 06:59 06:59 Intake Total 1849 530 Output Total 1230 6815 Balance 619 -745 Result Diagrams: 07/28/18 07:41 07/27/18 07:24 <Sarai Carpenter - Last Filed: 07/28/18 14:31> Phys Exam - Physical Examination Constitutional: NAD HEENT: PERRLA, moist MMs Neck: no nodes, no JVD, supple, full ROM Respiratory: no wheezing, no rales, no rhonchi, clear to auscultation bilateral Cardiovascular: RRR, no significant murmur, no rub Gastrointestinal: soft, non-tender, no distention, positive bowel sounds Musculoskeletal: no edema, pulses present Left facial droop. Speech about the same compared to yesterday. Unable to move left side. Decreased sensation Lymphatic: no nodes Psychiatric: normal affect, A&O x 3 Skin: no rash, normal turgor, cap refill <2 seconds <Satnam Thompson - Last Filed: 07/28/18 08:30> Dx/Plan (1) Hemorrhagic stroke Code(s): I61.9 - NONTRAUMATIC INTRACEREBRAL HEMORRHAGE, UNSPECIFIED Status: Acute (2) Pre-diabetes Code(s): R73.03 - PREDIABETES Status: Acute (3) Sleep apnea Code(s): G47.30 - SLEEP APNEA, UNSPECIFIED Status: Acute (4) Tobacco abuse counseling Code(s): Z71.6 - TOBACCO ABUSE COUNSELING Status: Acute (5) Elevated blood pressure reading without diagnosis of hypertension Code(s): R03.0 - ELEVATED BLOOD-PRESSURE READING, W/O DIAGNOSIS OF HTN Status : Acute - Plan Plan: Hemorrhagic Stroke -07/[address] shows hemorrhage into R. basal ganglia and lateral ventricle. 07/[address] stable -Neurosurgery team has signed off. Stable for rehab. -PT/OT/Rehab consulted- will follow recs. Once we get speech recs pt is stable for discharge to Rehab unit. -Speech consulted- had barium swallow yesterday. Says pt can eat pureed and thickened liquids with risk of aspiration. will reevaluate today. Pt states if doesn't pass would like peg instead of take risk. -statin started. Elevated BP -IV PRN labetolol and hydralazine ordered for SBP >180. -Continue to monitor. Pt started on Norvasc. BP still elevated. May want to increase dose. will continue to monitor and adjust. NARAYAN -Pt likely has underlying Sleep Apnea. Pt had episode last night. Think episode was related to her sleep apnea and was just somnolent and tired. Pt using BIPAP at this time. would continue while her. Recommend outpatient sleep study or getting set up with cpap or bipap. Prediabetes -A1c 6.1. Closer to discharge will senior counsel commercial pt and likely start on metformin. <Satnam Thompson - Last Filed: 07/28/18 08:30> Attending Addendum - Attending Addendum Date/Time: 07/28/18 1421 I personally evaluated the patient and discussed the management with Dr. Thompson. I agree with the History, Examination, Assessment and Plan documented above with any addition or exceptions noted below. The patient was moved to [facility] after becoming somnolent on the floor likely 2/2 narayna. She was started on bipap and is back to normal. She is still at risk of aspiration but continues to work with speech. She was going to try swallowing pureed, thickened liquids with speech this morning. If swallowing doesn't improve, she may need a peg. <Sarai Carpenter - Last Filed: 07/28/18 14:31>
[2018-07-28] MEDS: Amlodipine 5 MG TAB PO SCH (09:37)
[2018-07-28] MEDS: Famotidine 20 MG TAB PO SCH ×2 (09:37→20:46)
--- NOTE | 2018-07-28 10:00 | PRG ---
DATE OF SERVICE: 07/28/2018 SUBJECTIVE: This morning she is awake and responsive. No pain, no discomfort. OBJECTIVE: VITAL SIGNS: Her blood pressure is elevated at 153/72, pulse is 94, respiratory rate 25, and temperature 99. GENERAL: She is awake and responsive. Left-sided weakness. She says she has some cough. Someone ordered blood gas again yesterday with a PO2 of 78, on BiPAP. IMPRESSION: 1. Morbid obesity. 2. Cerebrovascular accident, right-sided thalamic. 3. Left-sided weakness with dysphagia. PLAN: She probably needs to have a PEG placed in and continued speech treatment and evaluation. Job ID: [id number]
--- NOTE | 2018-07-29 00:51 | CON ---
DATE OF CONSULTATION: 07/28/2018 GI INPATIENT CONSULTATION NOTE REQUESTING PHYSICIAN: Dr. Olsen. REASON FOR CONSULTATION: Consider PEG tube placement. HISTORY OF PRESENT ILLNESS: Radha Schrader is a 68-year-old woman with a prior history of obesity and ongoing tobacco abuse. She has had no abdominal surgeries other than a . She was on no prescription medications on an outpatient basis. She presented to the hospital 3 days ago after having been found down with left facial droop and left-sided weakness. She was quite hypertensive on admission. A CT of the head demonstrated an acute hemorrhagic stroke on the right side involving the thalamus. Over the past few days since then she has continued to have some facial droop and left-sided weakness as well as development of oropharyngeal dysphagia. She states that whenever she tries to swallow anything, it scares her a bit because she feels like it might be going down the wrong pipe. She has been coughing and clearing her throat when trying to eat and drink. She had a formal modified barium swallow study done yesterday, which showed rachel aspiration with nectar consistencies. Despite all of this, the patient is really not sure whether she wants to opt for PEG tube placement. At this point, she is hoping for improvement with further therapy and does not want to have any procedure performed, and she is aware of aspiration risk. She has no complaints of abdominal pain. She had no surgeries to the upper abdomen. She is not on any anticoagulation or antiplatelet therapy. REVIEW OF SYSTEMS: Full review of systems including constitutional; head, eyes, ears, nose, throat, GI, , cardiovascular, respiratory, musculoskeletal, and neurologic systems are negative, except as noted in the HPI. PAST MEDICAL HISTORY: 1. Obesity. 2. Tobacco abuse. 3. . 4. Right-sided hemorrhagic stroke on 07/25/2018. ALLERGIES: NO KNOWN DRUG ALLERGIES. INPATIENT MEDICATIONS: 1. Amlodipine. 2. Famotidine. FAMILY HISTORY: Her brother had a stroke. SOCIAL HISTORY: She has been smoking for the past 30 years. Alcohol use is occasional. PHYSICAL EXAMINATION: VITAL SIGNS: Temperature 98.2, pulse 77, blood pressure 157/76, and 95% oxygen saturation on 2 L nasal cannula. GENERAL: A 68-year-old woman, lying in bed comfortably in no acute distress. SKIN: No jaundice. No rashes are palpable. No surgical scars to the left upper quadrant of the abdomen. EYES: No scleral icterus. Extraocular movements intact. ENT: Mucous membranes moist. No oral lesions. LYMPH NODES: No submandibular or supraclavicular lymphadenopathy. THYROID: Nontender to palpation. HEART: Regular rate and rhythm. LUNGS: Clear to auscultation bilaterally. ABDOMEN: No surgical scars apparent to the upper abdomen. Bowel sounds are present, soft, and nontender to palpation. She is obese. EXTREMITIES: No peripheral edema. VESSELS: Radial pulses 2+ bilaterally. NEUROLOGIC: She does have left-sided facial droop and left-sided weakness. LABORATORY STUDIES: WBC 11, hemoglobin 13.2, and platelets 237. INR 1.1. Troponin negative x2. Sodium 135, potassium 3.8, BUN 10, and creatine 0.56. IMAGING STUDIES: Modified barium swallow performed yesterday as detailed on the HPI. She has had multiple CTs of the head showing now stable right-sided hemorrhagic stroke involving the thalamus and the right ventricle. ASSESSMENT AND PLAN: 1. Oropharyngeal dysphagia following hemorrhagic stroke. 2. Right-sided hemorrhagic stroke. I had a long discussion with the patient today regarding the findings of her swallow study and speech recommendations. I think PEG placement is indicated and certainly reasonable to consider at this time. I discussed the risks and benefits of undergoing the procedure in detail with the patient. For now, the patient is unwilling to go through with PEG placement and would prefer to continue to work with Speech Therapy and accept aspiration risk for now; I would honor her wishes in this regard. She expresses good understanding of the risks involved either way. We will not plan for any PEG placement at this time. GI always remains available if the clinical situation or the patient's decision changes. The patient is to let us know. Thank you for the consultation. Please call at any time with questions or concerns. Job ID: [id number]
[2018-07-29] MEDS: Sodium Chloride 0.9% 1,000 ML IV SCH ×2 (05:31→17:58)
--- NOTE | 2018-07-29 08:31 | PDOC.FM ---
- Subjective Subjective: Pt doing well this morning. No events overnight. Reports swallowing improving. Pt is able to puff her cheeks out and keep air inside. Patient states she is working on building up her muscle strength in order to tolerate PO without aspirating. Pt unable to move left side at all at this time. States her sensation is intake on left side. Denies any chest pain, SOB, headaches. - Objective Vital Signs & Weight: Vital Signs (12 hours) Temp Pulse Resp BP Pulse Ox 07/29/18 07:44 94 L 07/29/18 07:39 97.9 F 69 13 146/71 H 96 07/29/18 04:00 97.3 F L 62 20 123/64 98 07/29/18 00:29 98.0 F 65 18 138/69 98 Weight Admit Weight 83 kg Weight 87.543 kg Most Recent Monitor Data Heart Rate from ECG 81 NIBP 174/135 NIBP BP-Mean 148 Respiration from ECG 15 SpO2 94 I&O: 07/28/18 07/29/18 07/30/18 06:59 06:59 06:59 Intake Total 530 2370 Output Total 1275 2450 Balance -745 -80 Result Diagrams: 07/28/18 07:41 07/27/18 07:24 Phys Exam - Physical Examination Constitutional: NAD HEENT: moist MMs Neck: supple, full ROM Respiratory: clear to auscultation bilateral Cardiovascular: RRR, no significant murmur, no rub Gastrointestinal: soft, non-tender, positive bowel sounds Musculoskeletal: no edema, pulses present pt unable to look towarads L; strength 0/5 on left, 5/5 on right, sensation intact in all extremities; CN XII intact Psychiatric: normal affect, A&O x 3 Dx/Plan (1) Elevated blood pressure reading without diagnosis of hypertension Code(s): R03.0 - ELEVATED BLOOD-PRESSURE READING, W/O DIAGNOSIS OF HTN Status : Acute (2) Hemorrhagic stroke Code(s): I61.9 - NONTRAUMATIC INTRACEREBRAL HEMORRHAGE, UNSPECIFIED Status: Acute (3) Pre-diabetes Code(s): R73.03 - PREDIABETES Status: Acute (4) Sleep apnea Code(s): G47.30 - SLEEP APNEA, UNSPECIFIED Status: Acute (5) Tobacco abuse counseling Code(s): Z71.6 - TOBACCO ABUSE COUNSELING Status: Acute - Plan Plan: Hemorrhagic Stroke - 07/[address] shows hemorrhage into R. basal ganglia and lateral ventricle. 07/[address] stable - Neurosurgery team has signed off. Stable for rehab. - PT/OT/Rehab consulted- will follow recs. Once we get speech recs pt is stable for discharge to Rehab unit. - Speech consulted- had barium swallow 07/27. Says pt can eat pureed and thickened liquids with risk of aspiration. will reevaluate 07/28/18. Pt declines peg tube at this time. Patient states she would like to continue strengthing her muscles to tolerate PO. She has a daughter coming in town in the next coupe of days who will want to speak to Gen Surg about the procedure. - statin started. Elevated BP - IV PRN labetolol and hydralazine ordered for SBP >180. - Continue to monitor. Pt started on Norvasc. BP still elevated. May want to increase dose. will continue to monitor and adjust. NARAYAN - Pt likely has underlying Sleep Apnea. Pt had episode on 07/27/18. Episode was related to her sleep apnea and was just somnolent and tired. Pt using BIPAP at this time. would continue while here. Recommend outpatient sleep study or getting set up with cpap or bipap. Prediabetes - A1c 6.1. Closer to discharge will eligibility counselor pt and likely start on metformin.
[2018-07-29] MEDS: Famotidine 20 MG TAB PO SCH ×2 (08:42→21:29)
[2018-07-29] MEDS: Amlodipine 5 MG TAB PO SCH (08:42)
--- NOTE | 2018-07-29 12:17 | EKG ---
Test Reason : Blood Pressure : / mmHG Vent. Rate : 094 BPM Atrial Rate : 094 BPM P-R Int : 146 ms QRS Dur : 082 ms QT Int : 376 ms P-R-T Axes : 000 137 129 degrees QTc Int : 470 ms Normal sinus rhythm Left posterior fascicular block Abnormal ECG Rightward axis Confirmed by DEDRA PHELPS, MARIE Russo ([id number]), editor & co founder CAROLINE LANGSTON ([id number]) on 07/29/2018 12:17:05 PM Referred By: Confirmed By:MARIE COLMENARES MD
--- NOTE | 2018-07-29 21:00 | PRG ---
DATE OF SERVICE: 07/29/2018 SERVICE: Pulmonary Medicine. INTERVAL HISTORY: The patient is doing fine from a respiratory standpoint. She denies any shortness of breath. She is not eating very well. Otherwise, there have been no overnight events. OBJECTIVE: VITAL SIGNS: Afebrile. Pulse 68, blood pressure 171/72, respirations 15, saturation 95% on 2 L nasal cannula. GENERAL: The patient is awake, alert, in no apparent distress. LUNGS: Very reduced air entry. No crackles or rhonchi appreciated. HEART: Normal rate and regular. ABDOMEN: Soft, nontender, and nondistended. Bowel sounds are positive. MUSCULOSKELETAL: No cyanosis or clubbing. No pitting in bilateral lower extremities. ASSESSMENT: 1. Cerebrovascular accident, hemorrhagic of the right thalamus. 2. Acute hypoxic respiratory failure. 3. Morbid obesity. 4. Left-sided weakness with dysphagia. DISCUSSION AND PLAN: She will stay in the IMCU for the time being. We will go on and off BiPAP on as needed basis. We will watch her volume status very closely. If she fails to swallow in the short term, she may need PEG tube placement. Job ID: [id number]
[2018-07-30] MEDS: Sodium Chloride 0.9% 1,000 ML IV SCH ×2 (06:30→21:29)
--- NOTE | 2018-07-30 06:39 | PDOC.FM ---
- Subjective Subjective: Patient resting comfortably in bed. States she continues to work on strengthening her muscles to help her eat but has had great difficulty. She has been able to tolerate some liquids but states that she coughs and has not been "eating right." Patient states that she is wanting to wait for her daughter to arrive to further discuss PEG placement but that she thinks she wants it. She states she is ready to go to rehab and work on her recovery. Denies any headache , NVD, fever/chills. - Objective Vital Signs & Weight: Vital Signs (12 hours) Temp Pulse Resp BP Pulse Ox 07/30/18 03:57 96.7 F L 60 18 154/64 H 96 07/29/18 23:52 98.4 F 73 20 151/80 H 94 L 07/29/18 20:00 98 07/29/18 19:53 97.6 F 63 22 H 160/76 H 98 Weight Admit Weight 83 kg Weight 91.172 kg Most Recent Monitor Data Heart Rate from ECG 81 NIBP 174/135 NIBP BP-Mean 148 Respiration from ECG 15 SpO2 94 I&O: 07/28/18 07/29/18 07/30/18 06:59 06:59 06:59 Intake Total 530 2370 2274 Output Total 1275 2450 2300 Balance -745 -80 -26 Result Diagrams: 07/28/18 07:41 07/27/18 07:24 Phys Exam - Physical Examination Constitutional: NAD HEENT: moist MMs Neck: supple Respiratory: clear to auscultation bilateral Cardiovascular: RRR, no significant murmur, no rub Gastrointestinal: soft, non-tender, no distention, positive bowel sounds Musculoskeletal: no edema strength 0/5 on left, 5/5 on right; sensation intact Dx/Plan (1) Elevated blood pressure reading without diagnosis of hypertension Code(s): R03.0 - ELEVATED BLOOD-PRESSURE READING, W/O DIAGNOSIS OF HTN Status : Acute (2) Hemorrhagic stroke Code(s): I61.9 - NONTRAUMATIC INTRACEREBRAL HEMORRHAGE, UNSPECIFIED Status: Acute (3) Pre-diabetes Code(s): R73.03 - PREDIABETES Status: Acute (4) Sleep apnea Code(s): G47.30 - SLEEP APNEA, UNSPECIFIED Status: Acute (5) Tobacco abuse counseling Code(s): Z71.6 - TOBACCO ABUSE COUNSELING Status: Acute - Plan Plan: Hemorrhagic Stroke - 07/[address] shows hemorrhage into R. basal ganglia and lateral ventricle. 07/[address] stable - Neurosurgery team has signed off. Stable for rehab. - PT/OT/Rehab consulted- will follow recs. Once we get speech recs pt is stable for discharge to Rehab unit. - Speech consulted- had barium swallow 07/27. Says pt can eat pureed and thickened liquids with risk of aspiration. She has a daughter coming in town this morning who will want to speak to Gen Surg about PEG tube placement. The patient now states that she would like the procedure but wants to speak with her daughter about it first when she arrives. Patient states she is ready to go to rehab and begin her recovery and thinks a PEG tube would be helpful as she has not been tolerating her diet well. - statin started. Elevated BP - IV PRN labetolol and hydralazine ordered for SBP >180. - Continue to monitor. Pt started on Norvasc. BP still elevated. May want to increase dose. will continue to monitor and adjust. NARAYAN - Pt likely has underlying Sleep Apnea. Pt had episode on 07/27/18. Episode was related to her sleep apnea and was just somnolent and tired. Pt using BIPAP at this time. would continue while here. Recommend outpatient sleep study or getting set up with cpap or bipap. Prediabetes - A1c 6.1. Closer to discharge will dormitory counselor pt and likely start on metformin.
[2018-07-30] MEDS: Amlodipine 5 MG TAB PO SCH (08:03)
[2018-07-30] MEDS: Famotidine 20 MG TAB PO SCH ×2 (08:03→21:28)
--- NOTE | 2018-07-30 16:07 | PRG ---
DATE OF SERVICE: 07/30/2018 SERVICE: Pulmonary Medicine. INTERVAL HISTORY: The patient is doing really well from breathing standpoint. She has been weaned down to room air. She has no complaints of cough, fevers, chills, nausea, or vomiting. She is breathing comfortably. She wore BiPAP last night. Otherwise, there has been no interval change to her condition. OBJECTIVE: VITAL SIGNS: Afebrile. Pulse 62, blood pressure 149/71, respirations 16, and saturation 100% on room air. GENERAL: The patient is awake, alert, in no apparent distress. LUNGS: Excellent air entry. There are some dependent crackles still present. There is rhonchi that clear with cough. No wheezing. HEART: Normal rate, regular. ABDOMEN: Soft, nontender, and nondistended. Bowel sounds are positive. MUSCULOSKELETAL: No cyanosis or clubbing. No pitting in the bilateral lower extremities. NEUROLOGIC: Grossly nonfocal. ASSESSMENT: 1. Cerebrovascular accident, hemorrhagic of the right thalamus. 2. Acute hypoxic respiratory failure. 3. Morbid obesity. 4. Left-sided weakness with dysphagia. DISCUSSION AND PLAN: The patient will continue using the BiPAP at night and during the daytime as needed. She has been weaned down to room air. If the patient fails to swallow in the short term, she may need a temporary and/or more permanent PEG tube. At this point, she is stable for transition out of the ICU. Job ID: [id number]
[2018-07-30] MEDS: hydrALAZINE 20 MG/ML VIAL SLOW IVP PRN (16:27)
[2018-07-31] MEDS ORDERED: Melatonin 3 MG TAB PO PRN (01:39)
[2018-07-31] MEDS: Acetaminophen 325 MG TAB PO PRN ×2 (02:02→17:39)
[2018-07-31] MEDS: Sodium Chloride 0.9% 1,000 ML IV SCH ×2 (02:05→17:57)
--- NOTE | 2018-07-31 06:03 | PDOC.FM ---
- Subjective Subjective: Patient resting comfortably in bed. Patient has no complaints or concerns. She does state she had a rough night last night due to a change in nurses and administration of medications. Her daughter was also supposed to come and never did. She endorses a headache last night that went away with tylenol. - Objective Vital Signs & Weight: Vital Signs (12 hours) Temp Pulse Resp BP Pulse Ox 07/31/18 04:00 97.4 F L 65 18 135/57 L 99 07/31/18 00:06 97.8 F 76 20 157/71 H 96 07/30/18 19:51 97.8 F 79 18 151/69 H 100 Weight Admit Weight 83 kg Weight 98.157 kg Most Recent Monitor Data Heart Rate from ECG 81 NIBP 174/135 NIBP BP-Mean 148 Respiration from ECG 15 SpO2 94 I&O: 07/29/18 07/30/18 07/31/18 06:59 06:59 06:59 Intake Total 2370 2274 1385 Output Total 2450 2300 2175 Balance -80 -26 -790 Result Diagrams: 07/28/18 07:41 07/27/18 07:24 Phys Exam - Physical Examination female, resting in bed HEENT: moist MMs Neck: supple Respiratory: clear to auscultation bilateral Cardiovascular: RRR Gastrointestinal: soft, non-tender, no distention, positive bowel sounds Musculoskeletal: no edema, pulses present left sided deficits remain Psychiatric: normal affect, A&O x 3 Skin: no rash Dx/Plan (1) Elevated blood pressure reading without diagnosis of hypertension Code(s): R03.0 - ELEVATED BLOOD-PRESSURE READING, W/O DIAGNOSIS OF HTN Status : Acute (2) Hemorrhagic stroke Code(s): I61.9 - NONTRAUMATIC INTRACEREBRAL HEMORRHAGE, UNSPECIFIED Status: Acute (3) Pre-diabetes Code(s): R73.03 - PREDIABETES Status: Acute (4) Sleep apnea Code(s): G47.30 - SLEEP APNEA, UNSPECIFIED Status: Acute (5) Tobacco abuse counseling Code(s): Z71.6 - TOBACCO ABUSE COUNSELING Status: Acute - Plan Plan: Hemorrhagic Stroke - 07/[address] shows hemorrhage into R. basal ganglia and lateral ventricle. 07/[address] stable - Neurosurgery team has signed off. Stable for rehab. - PT/OT/Rehab consulted- will follow recs. Once we get speech recs pt is stable for discharge to Rehab unit. - Speech consulted- had barium swallow 07/27. Says pt can eat pureed and thickened liquids with risk of aspiration. - Calorie count over last 24 hrs to definitively decide whether to proceed to PEG tube or not. Patient can also be sent to inpt rehab where they can continue to monitor intake. If inadequate will consult Gen Surg for PEG tube placement. Pt could also get PEG tube on outpatient basis. - Pt states she is ready to go to rehab to begin recovery - statin started. Elevated BP - IV PRN labetolol and hydralazine ordered for SBP >180. - Continue to monitor. Pt started on Norvasc. BP still elevated. May want to increase dose. will continue to monitor and adjust. NARAYAN - Pt likely has underlying Sleep Apnea. Pt had episode on 07/27/18. Episode was related to her sleep apnea and was just somnolent and tired. Pt using BIPAP at this time. would continue while here. Recommend outpatient sleep study or getting set up with cpap or bipap. Prediabetes - A1c 6.1. Closer to discharge will in house counsel pt and likely start on metformin
[2018-07-31] MEDS: Amlodipine 5 MG TAB PO SCH (09:44)
[2018-07-31] MEDS: Famotidine 20 MG TAB PO SCH ×2 (09:45→21:32)
--- NOTE | 2018-07-31 10:19 | PRG ---
DATE OF SERVICE: 07/31/2018 OBJECTIVE: GENERAL: This morning, she is awake, alert and responsive. VITAL SIGNS: Sats are 96% on 1 L, respiratory rate 14, temperature 97, and blood pressure 154/79. CHEST: No wheezing or crackles. CARDIAC: Normal S1, S2. No gallops. ABDOMEN: No masses. DIAGNOSTIC DATA: No lab is ordered. IMPRESSION: 1. Status post cerebrovascular accident. 2. Dysphagia. Apparently, she is swallowing, so PEG has not been placed. Continue evaluation by Speech. We will follow. Job ID: [id number]
--- NOTE | 2018-07-31 12:13 | PRG ---
DATE OF SERVICE: 07/31/2018 ADDENDUM: This is an addendum to the note of Dr. Janeth Barrera. Ms. Schrader is sitting in her bedside chair, resting comfortably. She is in no distress. She is completely awake, alert, and oriented. Blood pressure is still slightly elevated and we are making adjustments in her medications to normalize this. In the event, she has recovered well from her intraparenchymal hemorrhage. Given that she had a hemorrhage, she is not a candidate for aspirin, although, we have started statin. Her labs have been stable and she has normal renal function. Job ID: [id number]
[2018-07-31] MEDS: hydrALAZINE 20 MG/ML VIAL SLOW IVP PRN (13:46)
[2018-07-31] MEDS: Labetalol HCl 100 MG/20 ML VIAL SLOW IVP PRN (17:58)
[2018-08-01] MEDS: Sodium Chloride 0.9% 1,000 ML IV SCH (06:38)
--- NOTE | 2018-08-01 06:42 | PDOC.FM ---
- Subjective Subjective: Patient resting in bed. No overnight events. Patient has no complaints or concerns. Patient states she has been able to eat some food over the last 24 hours without issues. Patient states she is ready to go to rehab. - Objective Vital Signs & Weight: Vital Signs (12 hours) Temp Pulse Resp BP Pulse Ox 08/01/18 03:57 99.2 F 74 19 135/62 95 08/01/18 00:00 99.1 F 85 19 137/56 L 93 L 07/31/18 20:00 98.5 F 89 19 145/66 H 95 Weight Admit Weight 83 kg Weight 98.157 kg Most Recent Monitor Data Heart Rate from ECG 81 NIBP 174/135 NIBP BP-Mean 148 Respiration from ECG 15 SpO2 94 I&O: 07/30/18 07/31/18 08/01/18 06:59 06:59 06:59 Intake Total 2274 2242 820 Output Total 2300 2175 850 Balance -26 67 -30 Result Diagrams: 07/28/18 07:41 07/27/18 07:24 Phys Exam - Physical Examination female HEENT: moist MMs, sclera anicteric Neck: supple Respiratory: clear to auscultation bilateral Cardiovascular: RRR, no significant murmur, no rub Gastrointestinal: soft, non-tender, no distention, positive bowel sounds Musculoskeletal: no edema, pulses present left sided motor deficits, unchanged from yesterday Psychiatric: normal affect, A&O x 3 Skin: no rash Dx/Plan (1) Elevated blood pressure reading without diagnosis of hypertension Code(s): R03.0 - ELEVATED BLOOD-PRESSURE READING, W/O DIAGNOSIS OF HTN Status : Acute (2) Hemorrhagic stroke Code(s): I61.9 - NONTRAUMATIC INTRACEREBRAL HEMORRHAGE, UNSPECIFIED Status: Acute (3) Pre-diabetes Code(s): R73.03 - PREDIABETES Status: Acute (4) Sleep apnea Code(s): G47.30 - SLEEP APNEA, UNSPECIFIED Status: Acute (5) Tobacco abuse counseling Code(s): Z71.6 - TOBACCO ABUSE COUNSELING Status: Acute - Plan Plan: Hemorrhagic Stroke - 07/[address] shows hemorrhage into R. basal ganglia and lateral ventricle. 07/[address] stable - Neurosurgery team has signed off. Stable for rehab. - PT/OT/Rehab consulted- will follow recs. Once we get speech recs pt is stable for discharge to Rehab unit. - Speech consulted- had barium swallow 07/27. Says pt can eat pureed and thickened liquids with risk of aspiration. - Calorie count over last 24 hrs to definitively decide whether to proceed to PEG tube or not. Will consult nutrition to further quantify the calories over the last 24hours. - Patient can also be sent to inpt rehab where they can continue to monitor intake. If inadequate will consult Gen Surg for PEG tube placement. Pt could also get PEG tube on outpatient basis. - Pt states she is ready to go to rehab to begin recovery - [facility] is calling this morning to finalize approval for inpt rehab. - statin started. Elevated BP - IV PRN labetolol and hydralazine ordered for SBP >180. - Continue to monitor. Pt started on Norvasc. BP still elevated. May want to increase dose. will continue to monitor and adjust. NARAYAN - Pt likely has underlying Sleep Apnea. Pt had episode on 07/27/18. Episode was related to her sleep apnea and was just somnolent and tired. Pt using BIPAP at this time. would continue while here. Recommend outpatient sleep study or getting set up with cpap or bipap. Prediabetes - A1c 6.1. Closer to discharge will adolescent counselor pt on diabetes and consider starting metformin. Recommend to establish with PCP for management. DISPO: likely discharge to inpt rehab today CODE:FULL
[2018-08-01] MEDS: Famotidine 20 MG TAB PO SCH ×2 (09:30→22:28)
[2018-08-01] MEDS ORDERED: Amlodipine 5 MG TAB PO SCH (09:45)
[2018-08-01] MEDS: Amlodipine 5 MG TAB PO SCH ×2 (09:45→09:46)
--- NOTE | 2018-08-01 10:52 | PRG ---
DATE OF SERVICE: 08/01/2018 SUBJECTIVE: This morning, she is awake, alert, responsive. Ate her breakfast. Not in any distress. OBJECTIVE: VITAL SIGNS: Her sats are 92%. Blood pressure 165/80, temperature 98. EXTREMITIES: Still not walking, we are trying to get her to rehab. CHEST: Decreased breath sounds. No wheezing. CARDIAC: Normal S1 and S2. No gallops. ABDOMEN: No masses. IMPRESSION: 1. Cerebrovascular accident. 2. Hypertension. PLAN: Continue present treatment. PT _ordered, diet. . Job ID: [id number] MTDD
[2018-08-02 06:03] LABS: #Basophils 0.1 thou/uL (0.0-0.2); #Eosinphils 0.2 thou/uL (0.0-0.7); #Lymphocytes 1.8 thou/uL (1.20-3.40); #Monocytes 1.1 thou/uL (0.11-0.59); #Neutrophils 7.9 thou/uL (1.40-6.50); %Basophils 0.5 % (0.0-1.0); %Eosinophils 1.8 % (0.0-10.0); %Lymphocytes 15.9 % (21.0-51.0); %Monocytes 10.1 % (0.0-10.0); %Neutrophils 71.8 % (42.0-75.0); Hemoglobin 13.2 g/dL (12.0-16.0); Mean Corpuscular HGB CONC 33.4 g/dL (32.0-36.0); Mean Corpuscular Hemoglobin 29.9 pg (27.0-31.0); Mean Corpuscular Volume 89.6 fL (78.0-98.0); Platelet Count 250 thou/uL (130-400); Red Blood Cell (RBC) Count 4.42 mill/uL (4.20-5.40)
[2018-08-02 06:13] LABS: Anion Gap 12 mmol/L (10-20); BUN (Urea Nitrogen) 12 mg/dL (9.8-20.1); Calc. Creatinine Clearance 158 mL/min (70-130); Calcium 9.6 mg/dL (7.8-10.44); Carbon Dioxide 29 mmol/L (23-31); Chloride 102 mmol/L (98-107); Estimated GFR-MDRD Greater than 90; Glucose 104 mg/dL (80-115); Potassium 3.9 mmol/L (3.5-5.1); Sodium 139 mmol/L (136-145)
--- NOTE | 2018-08-02 06:16 | PDOC.FM ---
- Subjective Subjective: Patient resting comfortably in bed. States she continues to eat her meals w/ no issues. No overnight events. - Objective Vital Signs & Weight: Vital Signs (12 hours) Temp Pulse Resp BP Pulse Ox 08/02/18 04:00 98.4 F 88 19 140/79 95 08/02/18 00:00 98.0 F 88 19 164/76 H 94 L 08/01/18 20:00 97.7 F 81 19 163/72 H 95 Weight Admit Weight 83 kg Weight 97.25 kg Most Recent Monitor Data Heart Rate from ECG 81 NIBP 174/135 NIBP BP-Mean 148 Respiration from ECG 15 SpO2 94 I&O: 07/31/18 08/01/18 08/02/18 06:59 06:59 06:59 Intake Total 2242 820 2190 Output Total 2175 850 750 Balance 67 -30 1440 Result Diagrams: 08/02/18 05:28 08/02/18 05:28 Phys Exam - Physical Examination Constitutional: NAD female HEENT: moist MMs, sclera anicteric Neck: supple Respiratory: clear to auscultation bilateral Cardiovascular: RRR, no significant murmur, no rub Gastrointestinal: soft, non-tender, no distention, positive bowel sounds Musculoskeletal: no edema, pulses present left sided motor deficits Psychiatric: normal affect, A&O x 3 Skin: no rash Dx/Plan (1) Elevated blood pressure reading without diagnosis of hypertension Code(s): R03.0 - ELEVATED BLOOD-PRESSURE READING, W/O DIAGNOSIS OF HTN Status : Acute (2) Hemorrhagic stroke Code(s): I61.9 - NONTRAUMATIC INTRACEREBRAL HEMORRHAGE, UNSPECIFIED Status: Acute (3) Pre-diabetes Code(s): R73.03 - PREDIABETES Status: Acute (4) Sleep apnea Code(s): G47.30 - SLEEP APNEA, UNSPECIFIED Status: Acute (5) Tobacco abuse counseling Code(s): Z71.6 - TOBACCO ABUSE COUNSELING Status: Acute - Plan Plan: Hemorrhagic Stroke - 07/[address] shows hemorrhage into R. basal ganglia and lateral ventricle. 07/[address] stable - Neurosurgery team has signed off. Stable for rehab. - PT/OT/Rehab consulted- will follow recs. Once we get speech recs pt is stable for discharge to Rehab unit. - Speech consulted- had barium swallow 07/27. Says pt can eat pureed and thickened liquids with risk of aspiration. - on 07/31 pt ate 13% of protein and 30% of total calories needed. Meals supplemented w/ mighty shake. Patient wishes to continue to try to eat before proceeding to PEG tube. - Patient can also be sent to inpt rehab where they can continue to monitor intake. If inadequate will consult Gen Surg for PEG tube placement. Pt could also get PEG tube on outpatient basis. - Pt states she is ready to go to rehab to begin recovery - Per CM notes, still working on inpt rehab approval - statin started. Elevated BP - IV PRN labetolol and hydralazine ordered for SBP >180. - Continue to monitor. Pt started on Norvasc. BP flunctuating. NARAYAN - Pt likely has underlying Sleep Apnea. Pt had episode on 07/27/18. Episode was related to her sleep apnea and was just somnolent and tired. Pt using BIPAP at this time. would continue while here. Recommend outpatient sleep study or getting set up with cpap or bipap. Prediabetes - A1c 6.1. Pt counseled on diabetes and started on metformin. Recommend to establish with PCP for management. DISPO: discharge once inpt rehab approved CODE: FULL
--- NOTE | 2018-08-02 07:51 | PRG ---
DATE OF SERVICE: 08/01/2018 ADDENDUM: This is an addendum to the note of Dr. Janeth Barrera. Ms. Schrader is sitting quietly in a bedside chair. She is in no distress. We are still working on adjusting her calories. Otherwise, we are also continuing to monitor her blood pressure in anticipation of discharge today or tomorrow. Job ID: [id number]
[2018-08-02] MEDS: Famotidine 20 MG TAB PO SCH ×2 (09:20→20:53)
[2018-08-02] MEDS: Amlodipine 10 MG TAB PO SCH (09:20)
[2018-08-02] MEDS: metFORMIN XR 500 MG TAB PO SCH (09:20)
--- NOTE | 2018-08-02 10:23 | PRG ---
DATE OF SERVICE: 08/02/2018 OBJECTIVE: VITAL SIGNS: Blood pressure 140/79, sats 100% on room air, temperature 98, pulse 88. CHEST: Reveals decreased breath sounds. No wheezing. CARDIAC: Normal S1, normal S2. No gallops. ABDOMEN: No masses. IMPRESSION: 1. Cerebrovascular accident with left-sided weakness. 2. Hypertension. 3. Probably sleep apnea. She is discharged to the rehab. If she has issues with her breathing, snoring, or sleep apnea, she is going to require outpatient sleep study. Job ID: [id number]
--- NOTE | 2018-08-02 14:34 | PRG ---
DATE OF SERVICE: ADDENDUM: This is an addendum to the note of Dr. Janeth Barrera. Ms. Schrader continues to have successful eating sessions. We are still awaiting placement. Otherwise, clinically, there have been no significant changes. Job ID: [id number]
[2018-08-02] MEDS: Acetaminophen 325 MG TAB PO PRN (16:09)
--- NOTE | 2018-08-03 07:05 | PDOC.FM ---
- Subjective Subjective: No overnight events. Patient states she did not eat much of her lunch yesterday bc she was sitting in her chair at bedside and had a BM on herself. She did eat most of her dinner w/ no issues. Patient continues to say that she is ready to go to rehab to start her recovery. - Objective Vital Signs & Weight: Vital Signs (12 hours) Temp Pulse Resp BP Pulse Ox 08/03/18 03:19 98.5 F 82 16 135/65 96 08/03/18 00:49 98.2 F 86 18 158/85 H 95 08/02/18 20:00 96 08/02/18 19:23 98.1 F 81 16 150/108 H 96 Weight Admit Weight 83 kg Weight 93.758 kg Most Recent Monitor Data Heart Rate from ECG 81 NIBP 174/135 NIBP BP-Mean 148 Respiration from ECG 15 SpO2 94 I&O: 08/02/18 08/03/18 08/04/18 06:59 06:59 06:59 Intake Total 2190 720 Output Total 750 Balance 1440 720 Result Diagrams: 08/02/18 05:28 08/02/18 05:28 Phys Exam - Physical Examination Constitutional: NAD HEENT: moist MMs, sclera anicteric Neck: supple, full ROM Respiratory: clear to auscultation bilateral Cardiovascular: RRR, no significant murmur, no rub Gastrointestinal: soft, non-tender, no distention, positive bowel sounds Musculoskeletal: no edema, pulses present unchanged from previous - left sided paralysis Psychiatric: normal affect, A&O x 3 Skin: no rash Dx/Plan (1) Elevated blood pressure reading without diagnosis of hypertension Code(s): R03.0 - ELEVATED BLOOD-PRESSURE READING, W/O DIAGNOSIS OF HTN Status : Acute (2) Hemorrhagic stroke Code(s): I61.9 - NONTRAUMATIC INTRACEREBRAL HEMORRHAGE, UNSPECIFIED Status: Acute (3) Pre-diabetes Code(s): R73.03 - PREDIABETES Status: Acute (4) Sleep apnea Code(s): G47.30 - SLEEP APNEA, UNSPECIFIED Status: Acute (5) Tobacco abuse counseling Code(s): Z71.6 - TOBACCO ABUSE COUNSELING Status: Acute - Plan Plan: Hemorrhagic Stroke - 07/[address] shows hemorrhage into R. basal ganglia and lateral ventricle. 07/[address] stable - Neurosurgery team has signed off. Stable for rehab. - PT/OT/Rehab consulted- will follow recs. Once we get speech recs pt is stable for discharge to Rehab unit. - Speech consulted- had barium swallow 07/27. Says pt can eat pureed and thickened liquids with risk of aspiration. - Meals supplemented w/ mighty shake. Patient wishes to continue to try to eat before proceeding to PEG tube. States she is eating w/ no issues. - Patient can also be sent to inpt rehab where they can continue to monitor intake. If inadequate will consult Gen Surg for PEG tube placement. Pt could also get PEG tube on outpatient basis. - Pt states she is ready to go to rehab to begin recovery - Per CM notes, awaiting authorization - statin started. Elevated BP - IV PRN labetolol and hydralazine ordered for SBP >180. - Continue to monitor. Pt started on Norvasc. BP flunctuating. NARAYAN - Pt likely has underlying Sleep Apnea. Pt had episode on 07/27/18. Episode was related to her sleep apnea and was just somnolent and tired. Pt using BIPAP at this time. would continue while here. Recommend outpatient sleep study or getting set up with cpap or bipap. Prediabetes - A1c 6.1. Pt counseled on diabetes and started on metformin. Recommend to establish with PCP for management. DISPO: discharge once inpt rehab approved CODE: FULL
[2018-08-03] MEDS: metFORMIN XR 500 MG TAB PO SCH (08:37)
[2018-08-03] MEDS: Amlodipine 10 MG TAB PO SCH (08:37)
[2018-08-03] MEDS: Famotidine 20 MG TAB PO SCH (08:37)
[2018-08-03 11:42] VITALS: BP 159/73; TEMP 97.9
[2018-08-03 13:58] VITALS: BMI 37.8
--- NOTE | 2018-08-03 14:14 | PRG ---
DATE OF SERVICE: 08/03/2018 ADDENDUM: This is an addendum to the note of Dr. Janeth Barrera. Ms. Schrader remains awake and alert. She is tolerating her diet without any signs of aspiration. We are still awaiting placement, at which time, she will be discharged. Her CBC remained stable with a hemoglobin of 13.2, hematocrit of 39.6. Chemistry stable. Sodium 139, potassium 3.9, chloride 102, bicarbonate 29, BUN 12, creatinine 0.53. She is on a statin, but we have held her aspirin since she had an intracranial bleed. Job ID: [id number]
--- NOTE | 2018-08-04 15:12 | DIS ---
DATE OF ADMISSION: 07/25/2018 DATE OF DISCHARGE: 08/03/2018 ADMITTING ATTENDING: Amador Tompkins MD DISCHARGE ATTENDING: Jake Watson MD. CONSULTS: 1. Case management. 2. Gastroenterology. 3. Neurology. 4. Pulmonology. 5. Dietitian. 6. PT/OT/Speech and Stroke Team. PROCEDURES: None. HISTORY OF PRESENT ILLNESS/HOSPITAL COURSE: This is a 68-year-old obese female, who was found down by her this morning. The patient was reportedly previously healthy with no issues. Per the , he reports that they work at the [employer] and that moring, he heard a thud and found the patient lying on the ground near the front door. He noticed that at that time, the patient had left-sided weakness and slurred speech. EMS was contacted and brought the patient to the ER for further evaluation. CT of the head was done on arrival, which showed a right-sided intracranial hemorrhage located around the right thalamus. There was intraventricular extension. The patient had a systolic blood pressure at the time greater than 200 on initial arrival. Her PT and INR were normal as well as her platelet count. The patient was started on a Cardene drip shortly after arrival to the ER and her blood pressure responded. On exam, the patient had dysarthria, left-sided facial droop, left-sided hemiplegia and left-sided neglect. This exam remained mostly unchanged throughout her stay. The patient was admitted to the ICU, and monitored closely with neuro-checks and strict blood pressure control. The patient was seen by Neurosurgery, who recommended no surgical intervention at this time. Care was transitioned to the medical team at this point. The patient had a modified barium swallow on 07/27/2018, which she failed. On the night of 07/27/2018, the patient had a code green called. Per the nurse, the patient was alert to voice, but not oriented to person or place. Repeat CT of head ordered that showed no change. The patient was started on BiPAP. Due to dysphagia, Gastroenterology was consulted for possible PEG tube placement. The patient at that time was unwilling to go through with the PEG placement and persevered to continue to working with the Speech Therapy and accepted the aspiration risk. The patient continued to improve swallowing ability and by the end of her stay, the patient was consuming about 75% of calorie total and 50% of her protein total. Upon discharge, instructions were written for the rehab center to keep a close account of her calorie intake. If the patient had a decline in intake, she could get a PEG tube placement in the outpatient setting. The patient's blood pressure remained well controlled by the end of her stay. The patient had an A1c of 6.1 and was started on metformin. DISPOSITION: Stable. DISCHARGE INSTRUCTIONS: 1. Location: Inpatient rehab. 2. Activity: Ad rosa with PT/OT and Speech. 3. Diet: Full nectar thick liquids supplemented with Mighty and Glucerna shakes, advance as tolerated. 4. Followup: Follow up with PCP within 3 days. Job ID: [id number]
== END 2018-08-03 17:15 | DRG 64 ==
LOC: ERS 07:33 → CCU 08:34 → 2SE 07-27 17:19 → CCU 07-27 19:50 → IMCU/EMU 07-27 22:27 → 2SE 07-31 13:34
PROVIDERS: ADMIT Neurological Surgery; ATTEND Neurological Surgery
PROC: 5A09457 Assistance with Respiratory Ventilation, 24-96 Consecutive Hours, Continuous Positive Airway Pressure (ICD-10-PCS; principal; 2018-07-27)
DX: I61.0 Nontraumatic intracerebral hemorrhage in hemisphere, subcortical (principal); J96.01 Acute respiratory failure with hypoxia; G81.94 Hemiplegia, unspecified affecting left nondominant side; R47.1 Dysarthria and anarthria; F17.210 Nicotine dependence, cigarettes, uncomplicated; I10 Essential (primary) hypertension; R73.03 Prediabetes; G47.33 Obstructive sleep apnea (adult) (pediatric); R29.810 Facial weakness; E66.01 Morbid (severe) obesity due to excess calories; Z68.37 Body mass index [BMI] 37.0-37.9, adult; R13.12 Dysphagia, oropharyngeal phase
CPT/HCPCS: 36415; 36416; 51702; 70450; 71045; 74230; 80048; 80053; 81003; 82550; 82553; 82805; 83036; 84484; 85025; 85610; 85730; 93005; 94660; 94760; 96361; 96374; 96375; 96376; G8978-GP-CM; G8979-GP-CK; G8979-GP-CL; G8987-GO-CL; G8987-GO-CM; G8988-GO-CJ; G8988-GO-CK; G8996-GN-CM; G8997-GN-CK; G8997-GN-CL; J0360; J2405; J2997; S0028

== ENCOUNTER 2018-09-06 14:59 | Outpatient (CLI) | payer MEDICARE ==
--- NOTE | 2018-09-06 16:37 | CT ---
HEAD CT WITHOUT CONTRAST 09/06/18 COMPARISON: 07/27/18 HISTORY: Followup intracranial hemorrhage. FINDINGS: There are associated malacic and gliotic changes involving a previously identified hemorrhage involvi ng the right deep hernandez matter structures. A subtle linear hyperdensity does remain which likely repre sents residual evolving blood products. An acute hemorrhage is less favored given the linear appeara nce. Nevertheless, short term followup CT may be beneficial. There is no evidence of hydrocephalus. Cortical hernandez-white matter differentiation is preserved. The calvarium is intact. Adequate aeration of the sinuses and mastoid air cells. Cavernous carotid at herosclerosis is noted. IMPRESSION: Expected evolutionary changes involving the cortical hemorrhage centered in the right deep hernandez matte r structures. POS: [facility]
== END 2018-09-06 15:00 | disposition home or self-care (01) ==
LOC: TBSIIMAG 14:59
PROVIDERS: ATTEND Neurological Surgery
DX: I62.9 Nontraumatic intracranial hemorrhage, unspecified (principal); I61.1 Nontraumatic intracerebral hemorrhage in hemisphere, cortical
CPT/HCPCS: 70450

== ENCOUNTER 2018-09-22 14:18 | Emergency (ER) | payer MEDICARE ==
--- NOTE | 2018-09-22 15:43 | ULT ---
LEFT LOWER EXTREMITY VENOUS DUPLEX EXAM: Date: 09/22/18 HISTORY: Left leg pain and swelling. FINDINGS: Real-time color Doppler of the left lower extremity was performed from groin to calf. This includes e valuation of the common femoral, superficial and profunda femoral, saphenous, popliteal, and posterio r tibial veins. This shows patent deep venous system. There is normal compressibility and augmentatio n. There is no evidence of deep venous thrombosis. IMPRESSION: No evidence of deep venous thrombosis of the left lower extremity. POS: [facility]
--- NOTE | 2018-09-22 15:44 | ULT ---
LEFT UPPER EXTREMITY VENOUS DUPLEX EXAM: Date: 09/22/18 HISTORY: Left upper pain and swelling. FINDINGS: Real-time color Doppler evaluation of the left upper extremity was performed to include the internal jugular, subclavian, axillary, brachial, basilic, and cephalic veins. This shows a patent deep venous system. There is normal compressibility and augmentation. There is no evidence of deep venous thromb osis. IMPRESSION: No evidence of deep venous thrombosis of the left upper extremity. POS: [facility]
== END 2018-09-22 16:33 | disposition home or self-care (01) ==
LOC: ERS 14:18
DX: R60.0 Localized edema (principal); I10 Essential (primary) hypertension; F17.210 Nicotine dependence, cigarettes, uncomplicated; Z86.73 Personal history of transient ischemic attack (TIA), and cerebral infarction without residual deficits; Z79.899 Other long term (current) drug therapy

== ENCOUNTER 2019-03-04 21:58 | Emergency (ER) | payer MEDICARE ==
[2019-03-04 22:35] LABS: #Basophils 0.1 thou/uL (0.0-0.2); #Eosinphils 0.1 thou/uL (0.0-0.7); #Lymphocytes 2.4 thou/uL (1.20-3.40); #Neutrophils 6.2 thou/uL (1.40-6.50); %Basophils 0.8 % (0.0-1.0); %Eosinophils 1.5 % (0.0-10.0); %Lymphocytes 24.1 % (21.0-51.0); %Monocytes 10.1 % (0.0-10.0); %Neutrophils 63.5 % (42.0-75.0); Mean Corpuscular HGB CONC 31.3 g/dL (32.0-36.0); Mean Corpuscular Hemoglobin 26.9 pg (27.0-31.0); Mean Corpuscular Volume 85.9 fL (78.0-98.0); Mean Platelet Volume 7.2 fL (7.4-10.4); Platelet Count 256 thou/uL (130-400); RBC Distribution Width 11.8 % (11.5-14.5); White Blood Cell (WBC) Count 9.7 thou/uL (4.8-10.8)
--- NOTE | 2019-03-04 22:49 | CT ---
CT Brain WO Con: 03/04/2019 10:17 PM CLINICAL HISTORY: Fall with head injury and pain. COMPARISON: 09/06/2018 FINDINGS: Hemorrhage: None. Ventricular system: Stable. Cerebral parenchyma: Microvascular ischemic disease Midline shift: None. Mass: No mass effect. Calvarium: Normal. Visualized Paranasal sinuses: Scattered mild inflammatory mucosal thickening. IMPRESSION: No acute intracranial abnormalities.
[2019-03-04 22:53] LABS: ALT (SGPT) 13 U/L (8-55); AST (SGOT) 13 U/L (5-34); Albumin 4.1 g/dL (3.4-4.8); Alkaline Phosphatase 62 U/L (40-150); Anion Gap 13 mmol/L (10-20); BUN (Urea Nitrogen) 12 mg/dL (9.8-20.1); Bilirubin, Total 0.3 mg/dL (0.2-1.2); Calc. Creatinine Clearance 0 mL/min (70-130); Calcium 9.8 mg/dL (7.8-10.44); Carbon Dioxide 26 mmol/L (23-31); Chloride 100 mmol/L (98-107); Estimated GFR-MDRD Greater than 90; Globulin 3.6 g/dL (2.4-3.5); Glucose 115 mg/dL (80-115); Potassium 3.6 mmol/L (3.5-5.1); Protein, Total 7.7 g/dL (6.0-8.3); Sodium 135 mmol/L (136-145)
== END 2019-03-04 23:15 | disposition home or self-care (01) ==
LOC: ERS 21:58
DX: F41.9 Anxiety disorder, unspecified (principal); I10 Essential (primary) hypertension; Z86.73 Personal history of transient ischemic attack (TIA), and cerebral infarction without residual deficits; F32.9 Major depressive disorder, single episode, unspecified; F17.210 Nicotine dependence, cigarettes, uncomplicated; Z79.899 Other long term (current) drug therapy; Z79.84 Long term (current) use of oral hypoglycemic drugs
CPT/HCPCS: 36415; 36416; 70450; 80053; 85025

== ENCOUNTER 2020-11-10 09:24 | Outpatient (CLI) | payer MEDICARE | END 2020-11-10 09:25 | disposition home or self-care (01) | LOC: BICMAMMO 09:24 | PROVIDERS: ATTEND Family Medicine | DX: Z12.31 Encounter for screening mammogram for malignant neoplasm of breast (principal) | CPT/HCPCS: 77063; 77067 ==

== ENCOUNTER 2021-02-09 08:03 | Outpatient (CLI) | payer MEDICARE | END 2021-02-09 08:04 | disposition home or self-care (01) | LOC: BICMAMMO 08:03 | PROVIDERS: ATTEND Family Medicine | DX: Z13.820 Encounter for screening for osteoporosis (principal); M81.0 Age-related osteoporosis without current pathological fracture; M85.89 Other specified disorders of bone density and structure, multiple sites | CPT/HCPCS: 77080 ==

== ENCOUNTER 2022-01-20 09:07 | Outpatient (CLI) | payer OTHER | END 2022-01-20 09:08 | disposition home or self-care (01) | LOC: BICCT 09:07 | PROVIDERS: ATTEND Family Medicine | DX: Z12.2 Encounter for screening for malignant neoplasm of respiratory organs (principal); F17.211 Nicotine dependence, cigarettes, in remission; I25.10 Atherosclerotic heart disease of native coronary artery without angina pectoris | CPT/HCPCS: 71271 ==

== ENCOUNTER 2022-10-20 14:21 | Outpatient (CLI) | payer MEDICARE, OTHER | END 2022-10-20 14:22 | disposition home or self-care (01) | LOC: BICMAMMO 14:21 | PROVIDERS: ATTEND Family Medicine | DX: Z12.31 Encounter for screening mammogram for malignant neoplasm of breast (principal) | CPT/HCPCS: 77063; 77067 ==

== ENCOUNTER 2023-10-28 15:39 | Outpatient (CLI) | payer MEDICARE | END 2023-10-28 15:40 | disposition home or self-care (01) | LOC: BICCT 15:39 | PROVIDERS: ATTEND Family Medicine | DX: Z12.2 Encounter for screening for malignant neoplasm of respiratory organs (principal); Z87.891 Personal history of nicotine dependence | CPT/HCPCS: 71271 ==

== ENCOUNTER 2024-02-15 11:18 | Outpatient (CLI) | payer MEDICARE | END 2024-02-15 11:19 | disposition home or self-care (01) | LOC: BICMAMMO 11:18 | PROVIDERS: ATTEND Family Medicine | DX: Z12.31 Encounter for screening mammogram for malignant neoplasm of breast (principal) | CPT/HCPCS: 77063; 77067 ==

== ENCOUNTER 2025-07-15 13:49 | Outpatient (CLI) | payer MEDICARE | END 2025-07-15 13:50 | disposition home or self-care (01) | LOC: BICMAMMO 13:49 | PROVIDERS: ATTEND Family Medicine | DX: Z12.31 Encounter for screening mammogram for malignant neoplasm of breast (principal) | CPT/HCPCS: 77063; 77067 ==